=== PATIENT | female | born 1985 | race Caucasian/White ===

== ENCOUNTER → 2023-12-04 | Outpatient (CLI) | payer BC ==
--- NOTE | 2023-12-04 14:30 | P.SLEEP ---
History of Present Illness H&P Date: 12/04/23 This is a 38-year-old female patient, morbidly obese with a body mass index of 73 , Presenting to me for evaluation of sleep apnea. This was a concern as the patient has history of loud snoring. She is currently living with her parents. She sleeps in a separate bedroom. No reported witnessed apneas. Nevertheless, the patient has snoring and she has noted occasionally to wake up choking and gasping. She is currently sleeping on her side and utilizing couple of pillows. She is working for a [employer] and she works between noon and 8 PM. She goes to bed late and typically she is able to go to bed at around 3 AM and the patient falls asleep immediately and she gets out of bed between 10 and 11 AM in the morning. She carries the same schedule on weekends. She is averaging at least 7 to 8 hours of sleep on a daily basis. No major hypersomnia during the day. She does not fall asleep while working patient does not fall asleep while driving patient does not fall asleep during day-to-day activities. Her current [place] score is at 11. Nevertheless, based on her anatomic features and morbid obesity, sleep apnea has been always a concern for this patient. She has history of multiple sclerosis. She is currently being treated and she continues to have some motor weakness in her left upper and left lower extremity with some visual disturbances. She also has hypertension, hyperlipidemia and diabetes mellitus type 2. She was started on Ozempic and she is encountered significant weight loss and her maximum body weight has been above 500 and currently she is down to 463. The patient has no restlessness in the lower extremities. No nocturia. No grinding. No anxiety. No depression. No significant restlessness in lower extremities although occasionally the patient developed some leg cramps. No substance abuse. No alcoholism. No head trauma. No family history of obstructive sleep apnea. Review of Systems Constitutional: Reports daytime sleepiness, Reports fatigue Eyes: denies as per HPI, denies blurred vision, denies bulging eye, denies decreased vision, denies diplopia, denies discharge, denies dry eye, denies irritation, denies itching, denies pain, denies photophobia, denies loss of peripheral vision, denies loss of vision, denies tunnel vision/blind spots Ears: deny: decreased hearing, ear discharge, earache, tinnitus Ears, nose, mouth and throat: Reports as per HPI Breasts: absent: as per HPI, change in shape, gynecomastia, masses, nipple discharge, pain, skin changes, swelling Cardiovascular: Reports as per HPI Respiratory: Reports snoring Gastrointestinal: Reports as per HPI Genitourinary: Reports as per HPI Menstruation: Reports as per HPI Musculoskeletal: Reports as per HPI Musculoskeletal: absent: ankle pain, ankle stiffness, ankle swelling Integumentary: Reports as per HPI Neurological: Reports double vision (Visual disturbance related to MS along with some motor weakness essentially on the left), Reports numbness, Reports paresthesias Endocrine: Reports as per HPI Hematologic/Lymphatic: Reports as per HPI Allergic/Immunologic: Reports as per HPI Past Medical History Past Medical History: Diabetes Mellitus, Hypertension Additional Past Medical History / Comment(s): Multiple sclerosis Past Surgical History: No Surgical Hx Reported Past Anesthesia/Blood Transfusion Reactions: No Reported Reaction Past Psychological History: No Psychological Hx Reported Smoking Status: Never smoker Past Alcohol Use History: None Reported Past Drug Use History: None Reported Medications and Allergies Home Medications and Allergies Comment(s): Avonex once a week, control pills, Aldactone 25 mg p.o. daily, Ozempic 1 mg p.o. daily, metoprolol 50 mg p.o. daily, Lipitor 10 mg p.o. daily, enalapril 5 mg p.o. daily. Drug allergies are not known Physical Exam General appearance the patient is morbidly obese and she is calm and comfortable, not in acute distress. Her body mass index is 73. [place] score is 11. Neck size is 19 inches. Weight is 463 pounds The patient appeared well nourished and normally developed. Vital signs as documented. Head exam is unremarkable. No scleral icterus or corneal arcus noted. Despite her morbid obesity, the patient has a Mallampati class I without any significant crowding of the posterior pharynx. Neck is without jugular venous distension, thyromegaly, or carotid bruits. Carotid upstrokes are brisk bilaterally. Lungs are clear to auscultation and percussion. Cardiac exam reveals the PMI to be normally sized and situated. Rhythm is regular. First and second heart sounds normal. No murmurs, rubs or gallops. Abdominal exam reveals normal bowel sounds, no masses, no organomegaly and no aortic enlargement. In fact the organs cannot be accurately palpated as the patient is morbidly obese. Extremities are nonedematous and both femoral and pedal pulses are normal. Examination of the skin revealed no evidence of significant rashes, suspicious appearing nevi or other concerning lesions. Neurologically, the patient is awake and alert and the patient does not have any focal neurological deficit. Cranial nerves are essentially intact. Assessment and Plan Plan: Snoring with some limited fatigue and sleepiness had an [place] score of 11. The patient is morbidly obese with a BMI of 73.7. The patient is being evaluated and worked up for sleep apnea. Despite of morbid obesity, the patient is a Mallampati class I. No major crowding of the posterior pharynx. Delayed sleep phase syndrome Multiple sclerosis, with some visual and motor disturbance on the left upper and left lower extremity Hypertension, currently on a combination blood pressure medication including enalapril, metoprolol and Aldactone Hyperlipidemia Diabetes mellitus currently on Ozempic and enalapril. Morbid obesity with a BMI of 73. The patient is losing weight and her current weight is down to 463 pounds with a body mass index of 73 while being on Ozempic Osteoarthritis Plan Despite her morbid obesity and anatomic features, the patient's symptoms are mild and my overall clinical suspicion for obstructive sleep apnea is low. The patient will maintain her efforts to lose weight. She is currently on Ozempic. She has successfully lost approximately 40 pounds. Maintain good sleep hygiene measures. The patient has delayed sleep phase syndrome. She can maintain the same schedule as long as this is in agreement with her lifestyle. Will do a home sleep study to rule out any underlying obstructive sleep apnea. This needs to be ruled out specially the patient is morbidly obese and she does have underlying multiple sclerosis which could potentially increase the risk of obstructive and central sleep apnea. Will continue to follow. Will make further recommendations based on results of the home sleep study. Sleep Note - Sleep Data ESS Total: 11 - Sleep Note Sleep Note: Temperature: Pulse Rate: Respiratory Rate: Blood Pressure: SpO2: Height: Weight: BMI: Neck Circumference:
[2023-12-04 15:44] VITALS: BP 171/100; PULSE 102; RESP 16; TEMP 98.1
== END ==
LOC: 3 N SLEEP 13:24
PROVIDERS: ATTEND Internal Medicine Critical Care Medicine
DX: G47.33 Obstructive sleep apnea (adult) (pediatric) (principal); R06.83 Snoring; E66.01 Morbid (severe) obesity due to excess calories; G47.21 Circadian rhythm sleep disorder, delayed sleep phase type; G35 Multiple sclerosis; E78.5 Hyperlipidemia, unspecified; E11.9 Type 2 diabetes mellitus without complications; M19.90 Unspecified osteoarthritis, unspecified site; Z68.45 Body mass index [BMI] 70 or greater, adult; Z79.899 Other long term (current) drug therapy
CPT/HCPCS: 99202

== ENCOUNTER → 2023-12-21 | Outpatient (CLI) | payer BC ==
--- NOTE | 2023-12-30 23:46 | P.PCN ---
Date of Procedure: 12/21/23 Operative Findings: Positive study testing Date of services 12/21/2023 Pertinent history This is a 38-year-old female patient who was seen in consultation due to concerns of obstructive sleep apnea. The patient has loud snoring and some degree of fatigue and sleepiness with an [place] score of 11. The patient is morbidly obese with a BMI of 73.7. The patient has delayed sleep phase syndrome. The patient has multiple sclerosis with some visual and motor disturbances involving the left upper extremity and left lower extremity and other comorbid conditions include diabetes mellitus type 2, hyperlipidemia and osteoarthritis. Pertinent physical findings the patient has an [place] score of 11. The patient has a body mass index of 75 and current weight is 463 pounds with a height of 5 feet and 6 inches Technical description The [employer] system was used to complete this home sleep study. There is a type III home sleep study. Total recording duration was 7 hours and 39 minutes. The study started at 2:28 PM and ended at 10:07 AM. There was a total of 7 hours and 27 minutes of flow monitoring and 7 hours and 28 minutes of oxygen saturation monitoring Results The respiratory analysis showed a total of 2 obstructive apneas and a total of 188 obstructive hypopneas and the resulting AHI was 25.5. No worsening supine body position. Oxygenation analysis The oxygen analysis showed multiple desaturations a total of 228 episodes with a pulse ox of by more than 4%. The minimum pulse ox was 68% and the patient's average pulse ox during sleep was 90%. The baseline pulse ox when awake was 95%. This patient spent approximately 1 hours and 8 minutes of sleep time below pulse ox of 89% Cardiac summary The average heart rate was 92 with a minimum heart rate of 69 and a maximal heart rate of 131 Assessment Obstructive sleep apnea with an AHI of 25.5. Respiratory events were essentially in the form of obstructive hypopneas associated with nocturnal oxygen desaturation with a minimum pulse ox of 68%. Morbid obesity with a BMI of 75.7 Snoring Chronic fatigue and sleepiness with an [place] score of 11 Hypertension Diabetes mellitus type 2 Plan Proceed with in lab CPAP titration.
== END ==
LOC: 3 N SLEEP 10:43
PROVIDERS: ATTEND Internal Medicine Critical Care Medicine
DX: G47.33 Obstructive sleep apnea (adult) (pediatric) (principal); G47.36 Sleep related hypoventilation in conditions classified elsewhere; E66.01 Morbid (severe) obesity due to excess calories; I10 Essential (primary) hypertension; R53.82 Chronic fatigue, unspecified; E11.9 Type 2 diabetes mellitus without complications; G35 Multiple sclerosis; M19.90 Unspecified osteoarthritis, unspecified site; G47.21 Circadian rhythm sleep disorder, delayed sleep phase type; E78.5 Hyperlipidemia, unspecified; Z68.45 Body mass index [BMI] 70 or greater, adult

== ENCOUNTER 2024-06-23 19:43 | Outpatient (CLI) | payer BC ==
--- NOTE | 2024-06-24 13:31 | P.PCN ---
Date of Procedure: 06/23/24 Operative Findings: 39-year-old female patient diagnosed having obstructive sleep apnea the patient is coming in to undergo a CPAP titration. The patient underwent a home sleep study on 12/21/2023 and the patient was found to have an AHI of 25.5 and the patient also encountered nocturnal oxygen desaturations. Pertinent physical findings Weight is 463 pounds and the patient has a body mass index of 75.7 CPAP titration report Date of service is 06/23/2024 Technical description The patient was studied using a standard complex polysomnography protocol that included recording of the Lead II EKG, Central, occipital and frontal EEG, right and left outer canthus EOG, submental EMG, right and left anterior tibialis EMG, respiratory airflow by thermocouple and or pressure/flow transducer, respiratory efforts by abdominal and thoracic PVDF belts, oxygen saturation by cable oximetry. Position by observation synchronized the PSG. Equipment used: [employer]. Stepwise CPAP titration was done to eliminate all obstructive respiratory events Sleep architecture The total recording duration was around 76.5 minutes. The total sleep time was 277.5 minutes. The wake after sleep onset time was 31.5 minutes. Overall sleep efficiency was 73.7%. The latency to sleep onset was 65 minutes. The latency to REM sleep was 82.5 minutes. The sleep architecture was characterized by 1.3% stage I, 61.4% stage II, 10.3% stage III, and a total of 27.2% REM sleep. The total arousal index was 5.2 Continuity summary The patient had a total of 24 arousals with an index of 5.2. The respiratory arousal index is 0.2 Periodic limb movement summary No significant periodic limb movement activity was noted. There was only 6 periodic limb movement activity with arousals with an index of 1.3 Cardiac summary Average heart rate was 77 with a minimum heart rate of 74 and a maximum heart rate of 82 CPAP titration summary The patient was started initially CPAP pressure of 4 cm of water and pressure was gradually increased increments of 1 cm to reach a maximum CPAP pressure of 9 cm of water. I Reviewed the CPAP titration taken without the patient sleep stage and body position. The patient was studied in all sleep stages including Gram stain and the patient was also studied in supine and nonsupine body position. At the pressures of 7 and 8 cm of water, the patient's treatment was successful and there was no significant obstructive respiratory events and the patient was able to maintain oxygen saturation above 90%. This was successful titration Assessment Obstructive sleep apnea, moderate in severity with an AHI of 25. The patient underwent a successful CPAP titration. There was complete elevation of the obstructive respiratory events with improvement in the patient oxygenation. Morbid obesity with a BMI of 75.7 Chronic sleepiness, Bailey score of 11 Diabetes mellitus type 2 Hypertension Plan Initiate CPAP therapy at a pressure of 8 cm of water with a C-Flex of 3. The patient will be offered a medium size AirFit F20 fullface mask. Encourage weight loss. Optimize sleep hygiene measures. Follow-up with me in the office in 30 to 90 days to assess clinical response and compliancy and will continue to follow.
== END 2024-06-24 05:45 | disposition home or self-care (01) ==
LOC: 3 N SLEEP 19:43
PROVIDERS: ATTEND Internal Medicine Critical Care Medicine
DX: G47.33 Obstructive sleep apnea (adult) (pediatric) (principal); I10 Essential (primary) hypertension; E66.01 Morbid (severe) obesity due to excess calories; E11.9 Type 2 diabetes mellitus without complications; G47.10 Hypersomnia, unspecified; Z68.45 Body mass index [BMI] 70 or greater, adult; Z79.85 Long-term (current) use of injectable non-insulin antidiabetic drugs; Z79.899 Other long term (current) drug therapy
CPT/HCPCS: 95811